=== PATIENT | male | born 1980 | race Caucasian/White ===

== ENCOUNTER 2023-10-06 14:47 | Outpatient (OUT) | payer OTHER, SELFPAY ==
--- NOTE | 2023-10-06 15:03 | XR_ITS ---
The [address] [address] Patient Name: BASILIO SARMIENTO MRN: [id number] date: 1980 Sex: M Assigned Patient Location: [facility] Current Patient Location: [facility] Accession/Order Number: [id number] Exam Date: 10/06/2023 15:06 Report Date: 10/06/2023 15:35 At the request of: BALDO CORTÉS Procedure: XR forearm LT 2V IMAGES REVIEWED: XR forearm LT 2V COMPARISON: None available. CLINICAL INDICATION: Left forearm injury FINDINGS/IMPRESSION: Bony irregularity involving the dorsal aspect of the distal radius on the lateral view with moderate dorsal wrist soft tissue swelling, suspicious for acute nondisplaced fracture. Otherwise the left forearm appears intact. No dislocation. No elbow effusion. Electronically authenticated by: LUKE MAY Date: 10/06/2023 15:35
== END 2023-10-06 14:48 | disposition home or self-care (01) ==
PROVIDERS: Visit Provider Nurse Practitioner Family
DX: M79.632 Pain in left forearm (principal)
CPT/HCPCS: 73090